=== PATIENT | male | born 1955 | race African-American/Black ===

== ENCOUNTER 2022-01-05 21:23 | Inpatient (IN) | payer MEDICARE, MEDICAID ==
[~2022-01-05] VITALS: Ht 175.3 cm; Wt 90.1 kg
[~2022-01-05 21:23] MED LIST: CLON-857 PO; HYDR-2616; TRIO1TP
[2022-01-05] MEDS ORDERED: SODIUM CHLORIDE 0.9% 1,000 ML IV ONE ×2 (22:30)
[2022-01-05 23:24] LABS: Basophils # (auto) 0 10 ^3/uL (0-0.2); Basophils % (auto) 0.9 % (0.0-2.0); Eosinophils # (auto) 0.1 10 ^3/uL (0-0.8); Eosinophils % (auto) 2.8 % (0.0-7.0); Hematocrit 38.6 % (41.0-53.0); Hemoglobin 13.1 g/dL (13.5-17.5); Lymphocytes # (auto) 1.4 10 ^3/uL (0.4-5.4); Lymphocytes % (auto) 38.8 % (10.0-50.0); Mean Corpuscular Hemoglobin 32.8 pg (28.0-32.0); Mean Corpuscular Hgb Conc. 33.9 g/dL (32.0-36.0); Mean Corpuscular Volume 96.8 fL (80.0-100.0); Monocytes # (auto) 0.3 10 ^3/uL (0-1.3); Monocytes % (auto) 9.5 % (0.0-12.0); Neutrophils # (auto) 1.7 10 ^3/uL (1.6-8.6); Nucleated Red Blood Cells % 0.2 %; Red Blood Cells 3.99 10^6/uL (4.5-5.90); Red Cell Distribution Width 15.4 % (11.8-14.3); White Blood Cell 3.6 10^3/uL (4.4-10.8)
[2022-01-05 23:42] LABS: Alanine Aminotransferase 15 U/L (16-61); Albumin 2.8 g/dL (3.4-5.0); Anion Gap 8 (5-15); Aspartate Aminotransferase 11 U/L (15-37); BUN/Creatinine Ratio 9.4; Blood Urea Nitrogen 9 mg/dL (7-18); Calcium 7.1 mg/dL (8.5-10.1); Carbon Dioxide 21 mmol/L (21-32); Chloride 113 mmol/L (98-107); GFR African American 100 mL/min; GFR Non-African American 83 mL/min; Glucose 80 mg/dL (74-106); Potassium 3.4 mmol/L (3.5-5.1); Sodium 142 mmol/L (136-145)
[2022-01-05 23:44] LABS: Alkaline Phosphatase 74 U/L (45-117); Bilirubin, Total 0.6 mg/dL (0.2-1.0); Total Protein 5.8 g/dL (6.4-8.2)
[2022-01-06] MEDS ORDERED: CALCIUM GLUC 1,000mg/50ml-NS 50 ML IV ONE (01:45)
[2022-01-06] MEDS ORDERED: PANTOPRAZOLE 40 MG/10 ML VIAL INJ IV ONE (10:00)
[2022-01-06] MEDS ORDERED: THIAMINE 100mg/ml INJ (200mg/2ml VIAL) IV ONE (10:00)
[2022-01-06] MEDS ORDERED: MAGNESIUM SULFATE 1GM/100ML 100 ML IV ONE (10:00)
[2022-01-06] MEDS ORDERED: POTASSIUM CHL 20MEQ/100ML 100 ML IV ONE (10:00)
[2022-01-06] MEDS ORDERED: LORazepam 2MG/ML-1ML VIAL IV PRN ×2 (10:00)
[2022-01-06] MEDS ORDERED: MORPHINE SULFATE INJ 2 MG/ml SYRG IV PRN ×3 (10:00→13:00)
[2022-01-06] MEDS ORDERED: NITROGLYCERIN 0.4 MG SL TAB SL PRN (10:00)
[2022-01-06] MEDS ORDERED: ONDANSETRON HCL 4 MG/2 ML VIAL IV PRN ×2 (10:00→13:00)
[2022-01-06 10:27] LABS: Urine Bacteria NONE SEEN /hpf (None Seen); Urine Blood Negative /uL (Negative); Urine Specific Gravity 1.009 (1.001-1.035); Urine WBC <1 /hpf (0 - 3)
[2022-01-06] MEDS ORDERED: LACTATED RINGER'S 2,000 ML IV ONE (10:45)
[2022-01-06] MEDS ORDERED: LABETALOL HCL 5 MG/ML 4ML SYRINGE IV ONE (10:45)
[2022-01-06] MEDS: SODIUM CHLORIDE 0.9% 1,000 ML IV SCH (11:39)
[2022-01-06] MEDS ORDERED: ACETAMINOPHEN 325 MG TAB PO PRN (13:00)
[2022-01-06] MEDS ORDERED: DOCUSATE SOD 100 MG CAP PO PRN (13:00)
[2022-01-06] MEDS ORDERED: HYDROcodone-ACET 5/325MG TAB PO PRN (13:00)
[2022-01-06] MEDS ORDERED: LORazepam 0.5 MG TAB PO PRN (13:00)
[2022-01-06] MEDS ORDERED: hydrALAZINE HCL 20 MG/ML VL IV PRN (13:00)
[2022-01-06 13:28] VITALS: BP 130/80
[2022-01-06 13:32] LABS: Magnesium 2.1 mg/dL (1.6-2.6); Phosphorus 3.3 mg/dL (2.5-4.90)
[2022-01-06] MEDS: GABAPENTIN 300 MG CAP PO SCH ×2 (14:39→21:28)
[2022-01-06] MEDS: CLINDAMYCIN 600MG IV 50 ML IV SCH ×2 (14:40→21:35)
[2022-01-06 14:54] LABS: INR 1.07 (0.9-1.15); Partial Thromboplastin Time 30.2 sec (23.6-33.0)
[2022-01-06] MEDS: TAMSULOSIN HYDROCHLORIDE 0.4 MG CAP PO SCH (18:42)
[2022-01-06] MEDS: FUROSEMIDE 40 MG/4 ML VIAL IV SCH (18:42)
[2022-01-06] MEDS: IPRATROPIUM BROM 0.5 MG/2.5ML INH SOL NEB SCH ×2 (18:44→22:15)
[2022-01-06 20:00] VITALS: BP 139/88
[2022-01-06] MEDS: POTASSIUM CHL 20 Meq TABLET PO SCH (21:24)
[2022-01-06] MEDS: ATORVASTATIN 20 MG TAB PO SCH (21:33)
[2022-01-06] MEDS: ISOSORBIDE MONONITRATE 20 MG TAB PO SCH (21:34)
[2022-01-06] MEDS: HEPARIN SODIUM (PORCINE) 5000 UNITS/ML 1ML VIAL SC SCH (21:42)
[2022-01-06 22:00] VITALS: BP 139/88
[2022-01-07] MEDS: IPRATROPIUM BROM 0.5 MG/2.5ML INH SOL NEB SCH ×3 (02:13→10:30)
[2022-01-07] MEDS: SODIUM CHLORIDE 0.9% 1,000 ML IV SCH ×2 (02:40→18:41)
[2022-01-07 05:00] VITALS: BP 103/61
[2022-01-07 05:23] LABS: Basophils # (auto) 0.1 10 ^3/uL (0-0.2); Basophils % (auto) 1.8 % (0.0-2.0); Eosinophils # (auto) 0.1 10 ^3/uL (0-0.8); Hematocrit 43.1 % (41.0-53.0); Hemoglobin 14.7 g/dL (13.5-17.5); Lymphocytes # (auto) 1.5 10 ^3/uL (0.4-5.4); Lymphocytes % (auto) 36.7 % (10.0-50.0); Mean Corpuscular Hemoglobin 32.6 pg (28.0-32.0); Mean Corpuscular Hgb Conc. 34.2 g/dL (32.0-36.0); Mean Corpuscular Volume 95.3 fL (80.0-100.0); Monocytes # (auto) 0.4 10 ^3/uL (0-1.3); Monocytes % (auto) 10.7 % (0.0-12.0); Neutrophils % (auto) 48.8 % (37.0-80.0); Red Blood Cells 4.53 10^6/uL (4.5-5.90); Red Cell Distribution Width 15.1 % (11.8-14.3); White Blood Cell 4.2 10^3/uL (4.4-10.8)
[2022-01-07 05:43] LABS: INR 1.1 (0.9-1.15); Partial Thromboplastin Time 31.2 sec (23.6-33.0)
[2022-01-07] MEDS: GABAPENTIN 300 MG CAP PO SCH ×3 (06:00→21:35)
[2022-01-07] MEDS: FUROSEMIDE 40 MG/4 ML VIAL IV SCH ×2 (06:00→18:40)
[2022-01-07] MEDS: CLINDAMYCIN 600MG IV 50 ML IV SCH ×3 (06:00→21:33)
[2022-01-07 06:24] LABS: Potassium 3.9 mmol/L (3.5-5.1)
[2022-01-07 06:38] LABS: Albumin 3.2 g/dL (3.4-5.0); BUN/Creatinine Ratio 11.1; Bilirubin, Total 0.9 mg/dL (0.2-1.0); CRP High Sensitivity 1.34 mg/dL (< 0.3); Calcium 8.8 mg/dL (8.5-10.1); Phosphorus 3.2 mg/dL (2.5-4.90); Total Protein 6.8 g/dL (6.4-8.2); Uric Acid 7.1 mg/dL (3.5-7.2)
[2022-01-07 09:00] VITALS: BP 106/79
[2022-01-07] MEDS: HEPARIN SODIUM (PORCINE) 5000 UNITS/ML 1ML VIAL SC SCH ×2 (09:55→21:36)
[2022-01-07] MEDS: THIAMINE HCL 100 MG TAB PO SCH (09:56)
[2022-01-07] MEDS: cefTRIAXone 1GM/50ML D5W 50 ML IV SCH (09:56)
[2022-01-07] MEDS: SERTRALINE HCL 50 MG TAB PO SCH (09:57)
[2022-01-07] MEDS: POTASSIUM CHL 20 Meq TABLET PO SCH ×2 (09:57→21:34)
[2022-01-07] MEDS: ASPirin 81 mg TAB PO SCH (09:57)
[2022-01-07] MEDS: FOLIC ACID 1 MG TAB PO SCH (09:57)
[2022-01-07] MEDS: BENAZEPRIL HCL 10 MG TAB PO SCH (09:58)
[2022-01-07] MEDS: ISOSORBIDE MONONITRATE 20 MG TAB PO SCH ×2 (09:58→21:34)
[2022-01-07] MEDS ORDERED: PANTOPRAZOLE 40 MG/10 ML VIAL INJ IV SCH (10:00)
[2022-01-07] MEDS: MULTIPLE VITAMINS W/ MINERALS TAB PO SCH (12:52)
[2022-01-07 13:00] VITALS: BP 124/84
[2022-01-07] MEDS ORDERED: IPRATROPIUM BROM 0.5 MG/2.5ML INH SOL NEB PRN (14:15)
[2022-01-07 15:50] LABS: Urine Bacteria NONE SEEN /hpf (None Seen); Urine Blood Negative /uL (Negative); Urine Specific Gravity 1.011 (1.001-1.035); Urine WBC 1 /hpf (0 - 3)
[2022-01-07 16:47] VITALS: BP 141/79
[2022-01-07 17:03] LABS: Alcohol, Urine < 3.0 mg/dL (0-10); Amphetamine Screen, Urine NEGATIVE (NEGATIVE); Barbiturate Scree,Urine NEGATIVE (NEGATIVE); Benzodiazephine Screen, Urine POSITIVE (NEGATIVE); Cocaine Screen, Urine NEGATIVE (NEGATIVE); Opiate Scree,Urine NEGATIVE (NEGATIVE); Phencyclidine Screen, Urine NEGATIVE (NEGATIVE); Protein, Urine 6.7 mg/dL (0.0-11.9)
[2022-01-07 17:11] LABS: Cannabinoid Screen, Urine NEGATIVE (NEGATIVE)
[2022-01-07] MEDS: TAMSULOSIN HYDROCHLORIDE 0.4 MG CAP PO SCH (18:41)
[2022-01-07] MEDS: ATORVASTATIN 20 MG TAB PO SCH (21:35)
[2022-01-07 22:48] VITALS: BP 119/85
[2022-01-08 05:14] VITALS: BP 100/73
[2022-01-08] MEDS: FUROSEMIDE 40 MG/4 ML VIAL IV SCH ×2 (06:00→17:47)
[2022-01-08] MEDS: GABAPENTIN 300 MG CAP PO SCH ×2 (06:13→14:13)
[2022-01-08] MEDS: CLINDAMYCIN 600MG IV 50 ML IV SCH ×2 (06:45→14:13)
[2022-01-08 08:00] VITALS: BP 105/63
[2022-01-08] MEDS: cefTRIAXone 1GM/50ML D5W 50 ML IV SCH (09:24)
[2022-01-08] MEDS: POTASSIUM CHL 20 Meq TABLET PO SCH (10:51)
[2022-01-08] MEDS: BENAZEPRIL HCL 10 MG TAB PO SCH (10:51)
[2022-01-08] MEDS: FOLIC ACID 1 MG TAB PO SCH (10:52)
[2022-01-08] MEDS: ISOSORBIDE MONONITRATE 20 MG TAB PO SCH (10:52)
[2022-01-08] MEDS: MULTIPLE VITAMINS W/ MINERALS TAB PO SCH (10:52)
[2022-01-08] MEDS: SERTRALINE HCL 50 MG TAB PO SCH (10:52)
[2022-01-08] MEDS: THIAMINE HCL 100 MG TAB PO SCH (10:53)
[2022-01-08] MEDS: ASPirin 81 mg TAB PO SCH (10:53)
[2022-01-08] MEDS: HEPARIN SODIUM (PORCINE) 5000 UNITS/ML 1ML VIAL SC SCH (10:59)
[2022-01-08] MEDS ORDERED: FOLI1TAB6 PO (11:11)
[2022-01-08] MEDS ORDERED: CHL25C PO (11:11)
[2022-01-08] MEDS ORDERED: THIA100T13 PO (11:11)
[2022-01-08] MEDS: SODIUM CHLORIDE 0.9% 1,000 ML IV SCH (12:00)
[2022-01-08 12:49] VITALS: BP 96/69
[2022-01-08 14:38] VITALS: BP 111/77
[2022-01-08 17:00] VITALS: BP 123/78
[2022-01-08] MEDS: TAMSULOSIN HYDROCHLORIDE 0.4 MG CAP PO SCH (17:47)
== END 2022-01-08 19:15 | disposition home or self-care (01) | DRG 52 ==
LOC: EDBD 21:23 → ER 21:23 → TELE 01-06 09:55 → TELE-WESTW 01-06 18:07
PROVIDERS: ADMIT Hospitalist; ATTEND Family Medicine
DX: G92.8 Other toxic encephalopathy (principal); D69.6 Thrombocytopenia, unspecified; E83.51 Hypocalcemia; E86.0 Dehydration; D72.819 Decreased white blood cell count, unspecified; R00.1 Bradycardia, unspecified; F11.20 Opioid dependence, uncomplicated; F10.129 Alcohol abuse with intoxication, unspecified; G89.4 Chronic pain syndrome; G62.9 Polyneuropathy, unspecified; F12.90 Cannabis use, unspecified, uncomplicated; E78.00 Pure hypercholesterolemia, unspecified; E78.5 Hyperlipidemia, unspecified; F17.210 Nicotine dependence, cigarettes, uncomplicated; F32.9 Major depressive disorder, single episode, unspecified; F32.A Depression, unspecified; F41.9 Anxiety disorder, unspecified; M54.9 Dorsalgia, unspecified; Z20.822 Contact with and (suspected) exposure to COVID-19; R47.1 Dysarthria and anarthria; Z86.73 Personal history of transient ischemic attack (TIA), and cerebral infarction without residual deficits; Z71.51 Drug abuse counseling and surveillance of drug abuser; I16.9 Hypertensive crisis, unspecified
CPT/HCPCS: 36415; 70450; 71045; 76705; 80053; 80061; 80307; 81001; 82550; 82728; 83036; 83615; 83690; 83735; 83880; 84100; 84156; 84439; 84443; 84484; 84550; 85025; 85379; 85610; 85652; 85730; 86141; 87040; 87077; 87086; 87186; 93005; 93970; 94640; 96361; 96365; C9113; G0378; J0696; J3480; J3490